=== PATIENT | female | born 1930 | race Caucasian/White ===

== ENCOUNTER 2019-11-09 08:51 | Emergency (ER) | payer MEDICARE, BC ==
[2019-11-09 08:55] VITALS: PULSE 81
[2019-11-09] MEDS ORDERED: Albuterol/Ipratropium 3.0-0.5 MG/3 ML Neb Soln NEB ONE (09:07)
[2019-11-09 09:30] VITALS: BP 146/68
[2019-11-09 09:46] LABS: CHLORIDE,CL 96 mmol/L (98-107); SODIUM,NA 135 mmol/L (136-145)
[2019-11-09] MEDS ORDERED: methylPREDNISolone Sodium Succinate 125 MG/2 ML SDV IM ONE (10:08)
--- NOTE | 2019-11-09 10:13 | EDM.PDOC ---
ED HPI GENERAL MEDICAL PROBLEM - General Chief Complaint: Cardiovascular Problem Stated Complaint: cough Time Seen by Provider: 11/09/19 09:00 Source of Information: Reports: Patient, Family History Limitations: Reports: Other (Dementia) - History of Present Illness INITIAL COMMENTS - FREE TEXT/NARRATIVE: Pt with intermittent cough No fever No chest pain Cough is not productive No N/V/D Onset: Gradual Duration: Day(s): Location: Reports: Chest Worsens with: Reports: Breathing Associated Symptoms: Reports: Cough - Related Data Allergies Allergy/AdvReac Type Severity Reaction Status Date / Time doxycycline Allergy UNKNOWN Verified 11/09/19 08:53 Penicillins Allergy UNKNOWN Verified 11/09/19 08:53 Home Meds: Home Meds Acetaminophen 1 tab PO Q4HR PRN 11/09/19 [History] Beta-Carotene(A)-Vits C,E/Mins [Vision Vitamins] 1 tab PO DAILY 11/09/19 [ History] Calcium Carbonate/Vitamin D3 [Calcium 600-Vit D3 500 Softgel] 2 tab PO DAILY 11/28 [History] Clindamycin HCl 1 tab PO ASDIRECTED PRN 11/09/19 [History] Diltiazem [Cardizem CD] 120 mg PO DAILY 11/09/19 [History] Docusate Sodium [Colace] 100 mg PO BEDTIME 11/09/19 [History] Donepezil HCl 10 mg PO DAILY 11/09/19 [History] Fluticasone Propionate [Flonase] 1 - 2 inh NASBOTH BID PRN 11/09/19 [History] Nadolol [Naldol] 40 mg PO DAILY 11/09/19 [History] Potassium Chloride 10 meq PO DAILY 11/09/19 [History] atorvaSTATin [Lipitor] 10 mg PO BEDTIME 11/09/19 [History] hydroCHLOROthiazide [Hydrochlorothiazide] 25 mg PO DAILY 11/09/19 [History] Past Medical History HEENT History: Reports: Allergic Rhinitis, Impaired Vision, Sinusitis Cardiovascular History: Reports: Arrhythmia, Heart Murmur, High Cholesterol, Hypertension Gastrointestinal History: Reports: Diverticulosis, Hiatal Hernia Musculoskeletal History: Reports: Osteoarthritis, Other (See Below) Other Musculoskeletal History: Polyarthralgia d/t degenerative disc disease Neurological History: Reports: Other (See Below) Other Neuro History: Dementia Hematologic History: Reports: Anemia - Past Surgical History GI Surgical History: Reports: Other (See Below) Other GI Surgeries/Procedures: anal fissure repair Musculoskeletal Surgical History: Reports: Knee Replacement, Other (See Below) Other Musculoskeletal Surgeries/Procedures:: Left TKA with post of cellulitis. Right TKA. Bilateral carpal tunnel surgery Social & Family History - Tobacco Use Smoking Status *Q: Never Smoker - Caffeine Use Caffeine Use: Reports: Coffee ED ROS GENERAL - Review of Systems Review Of Systems: See Below Constitutional: Reports: No Symptoms HEENT: Reports: No Symptoms Respiratory: Reports: Wheezing, Cough Cardiovascular: Reports: No Symptoms GI/Abdominal: Reports: No Symptoms ED EXAM, GENERAL - Physical Exam Exam: See Below Exam Limited By: No Limitations General Appearance: No Apparent Distress Nose: Normal Inspection Throat/Mouth: Normal Oropharynx Neck: Supple Respiratory/Chest: Wheezing Cardiovascular: Regular Rate, Rhythm GI/Abdominal: Non-Tender Course - Vital Signs Last Recorded V/S: Last Vital Signs Temp 36.9 C 11/09/19 08:54 Pulse 81 11/09/19 09:15 Resp 21 H 11/09/19 08:54 BP 146/68 H 11/09/19 09:15 Pulse Ox 93 L 11/09/19 09:15 - Orders/Labs/Meds Orders: Active Orders 24 hr Category Date Time Status RT Aerosol Therapy [RC] ASDIRECTED Care 11/09/19 09:08 Active Chest 2V [CR] Stat Exams 11/09/19 09:08 Taken methylPREDNISolone Sod Succ [Solu-MEDROL] Med 11/09/19 10:08 Once 125 mg IM ONETIME ONE Labs: Laboratory Tests 11/09/19 11/09/19 Range/Units 09:15 09:15 WBC 5.9 (4.0-10.2) K/uL RBC 4.61 (3.77-5.09) M/uL Hgb 14.3 (11.7-15.5) g/dL Hct 41.0 (34.0-46.0) % MCV 88.9 (84.0-98.0) fL MCH 31.0 (28.2-33.3) pg MCHC 34.9 (31.7-36.0) g/dL RDW 13.5 (11.2-14.1) % Plt Count 116 L (150-350) K/uL Neut % (Auto) 65.5 (45.0-80.0) % Lymph % (Auto) 16.8 (10.0-50.0) % Harper % (Auto) 13.7 (2.0-14.0) % Eos % (Auto) 3.7 (0.0-5.0) % Baso % (Auto) 0.3 (0.0-2.0) % Neut # (Auto) 3.86 (1.40-7.00) K/uL Lymph # (Auto) 0.99 (0.50-3.50) K/uL Harper # (Auto) 0.81 (0.00-1.00) K/uL Eos # (Auto) 0.22 (0.00-0.50) K/uL Baso # (Auto) 0.02 (0.00-0.20) K/uL Sodium 135 L (136-145) mmol/L Potassium 3.4 L (3.5-5.1) mmol/L Chloride 96 L (98-107) mmol/L Carbon Dioxide 31.8 (21.0-32.0) mmol/L BUN 13 (7-18) mg/dL Creatinine 0.66 (0.51-1.17) mg/dL Est Cr Clr Drug Dosing TNP Estimated GFR (MDRD) > 60 mL/min Glucose 102 (74-106) mg/dL Calcium 9.0 (8.5-10.1) mg/dL Meds: Medications Discontinued Medications Generic Name Dose Route Start Last Admin Trade Name Freq PRN Reason Stop Dose Admin Albuterol/Ipratropium 3 ml 11/09/19 09:07 11/09/19 09:10 Duoneb 3.0-0.5 Mg/3 Ml NEB 11/09/19 09:08 3 ml ONETIME ONE Administration - Re-Assessments/Exams Free Text/Narrative Re-Assessment/Exam: 11/09/19 10:11 Pt given HHN with resolution of wheezing Pt also given Solu-medrol 125 mg IM in ER Departure - Departure Time of Disposition: 10:30 Disposition: Home, Self-Care 01 Clinical Impression: URI (upper respiratory infection) Qualifiers: URI type: unspecified URI Qualified Code(s): J06.9 - Acute upper respiratory infection, unspecified Instructions: Shortness of Breath, Adult, [id number], Cough, Adult, Easy-to- Read Referrals: Meredith Porter [employer] [Primary Care Provider] - Additional Instructions: Follow up in clinic Sepsis Event Note - Evaluation Sepsis Screening Result: No Definite Risk - Focused Exam Vital Signs: Vital Signs Temp Pulse Resp BP Pulse Ox 11/09/19 09:15 81 146/68 H 93 L 11/09/19 09:05 81 148/75 H 93 L 11/09/19 08:54 36.9 C 81 21 H 181/78 H 93 L Date Exam was Performed: 11/09/19 Time Exam was Performed: 10:09 - My Orders Last 24 Hours: My Active Orders 11/09/19 09:08 RT Aerosol Therapy [RC] ASDIRECTED Chest 2V [CR] Stat 11/09/19 10:08 methylPREDNISolone Sod Succ [Solu-MEDROL] 125 mg IM ONETIME ONE - Assessment/Plan Last 24 Hours: My Active Orders 11/09/19 09:08 RT Aerosol Therapy [RC] ASDIRECTED Chest 2V [CR] Stat 11/09/19 10:08 methylPREDNISolone Sod Succ [Solu-MEDROL] 125 mg IM ONETIME ONE
== END 2019-11-09 10:36 | disposition home or self-care (01) ==
LOC: LL.ED 08:51
DX: J06.9 Acute upper respiratory infection, unspecified (principal); E78.00 Pure hypercholesterolemia, unspecified; I10 Essential (primary) hypertension; F03.90 Unspecified dementia, unspecified severity, without behavioral disturbance, psychotic disturbance, mood disturbance, and anxiety; Z79.899 Other long term (current) drug therapy; Z88.0 Allergy status to penicillin; Z88.1 Allergy status to other antibiotic agents
CPT/HCPCS: 36415; 71046; 80048; 85025; 94640; 99284-25; J2930; J7620-GY

== ENCOUNTER 2020-02-19 08:13 | Emergency (ER) | payer MEDICARE, BC ==
[2020-02-19 08:32] VITALS: BP 179/99; PULSE 60
--- NOTE | 2020-02-19 08:47 | EDM.PDOC ---
ED HPI GENERAL MEDICAL PROBLEM - General Chief Complaint: Laceration Stated Complaint: fall, lac to back of head Time Seen by Provider: 02/19/20 08:36 Source of Information: Reports: Patient, Intermediate Records - History of Present Illness INITIAL COMMENTS - FREE TEXT/NARRATIVE: Pt fell and hit back of head while sitting in chair No LOC Has laceration to back of head Onset: Today, Sudden Location: Reports: Head - Related Data Allergies Allergy/AdvReac Type Severity Reaction Status Date / Time doxycycline Allergy UNKNOWN Verified 02/19/20 08:32 Penicillins Allergy UNKNOWN Verified 02/19/20 08:32 Home Meds: Home Meds Acetaminophen 1 tab PO Q4HR PRN 11/09/19 [History] Beta-Carotene(A)-Vits C,E/Mins [Vision Vitamins] 1 tab PO DAILY 11/09/19 [ History] Calcium Carbonate/Vitamin D3 [Calcium 600-Vit D3 500 Softgel] 2 tab PO DAILY 11/28 [History] Clindamycin HCl 1 tab PO ASDIRECTED PRN 11/09/19 [History] Diltiazem [Cardizem CD] 120 mg PO DAILY 11/09/19 [History] Docusate Sodium [Colace] 100 mg PO BEDTIME 11/09/19 [History] Donepezil HCl 10 mg PO DAILY 11/09/19 [History] Fluticasone Propionate [Flonase] 1 - 2 inh NASBOTH BID PRN 11/09/19 [History] Potassium Chloride 10 meq PO DAILY 11/09/19 [History] atorvaSTATin [Lipitor] 10 mg PO BEDTIME 11/09/19 [History] hydroCHLOROthiazide [Hydrochlorothiazide] 25 mg PO DAILY 11/09/19 [History] nadoloL [Naldol] 40 mg PO DAILY 11/09/19 [History] Past Medical History HEENT History: Reports: Allergic Rhinitis, Impaired Vision, Sinusitis Cardiovascular History: Reports: Arrhythmia, Heart Murmur, High Cholesterol, Hypertension Gastrointestinal History: Reports: Diverticulosis, Hiatal Hernia Musculoskeletal History: Reports: Osteoarthritis, Other (See Below) Other Musculoskeletal History: Polyarthralgia d/t degenerative disc disease Neurological History: Reports: Other (See Below) Other Neuro History: Dementia Hematologic History: Reports: Anemia - Past Surgical History GI Surgical History: Reports: Other (See Below) Other GI Surgeries/Procedures: anal fissure repair Musculoskeletal Surgical History: Reports: Knee Replacement, Other (See Below) Other Musculoskeletal Surgeries/Procedures:: Left TKA with post of cellulitis. Right TKA. Bilateral carpal tunnel surgery Social & Family History - Caffeine Use Caffeine Use: Reports: Coffee ED ROS GENERAL - Review of Systems Review Of Systems: See Below Skin: Reports: Wound (Laceration to back of head) ED EXAM, SKIN/RASH Exam: See Below General Appearance: No Apparent Distress Head: Other (6 cm laceration to back of head No active bleeding) Neck: Non-Tender Neurological: Alert, No Motor/Sensory Deficits ED SKIN PROCEDURES - Laceration/Wound Repair Posterior Head Appearance: Linear Skin Prep: Saline Closed with: [place] Lac/Wound length In cm: 6 # of Sutures: 5 Tetanus Status Addressed: Yes Course - Vital Signs Last Recorded V/S: Last Vital Signs Temp 96.7 F L 02/19/20 08:17 Pulse 60 02/19/20 08:17 Resp 18 02/19/20 08:17 BP 179/99 H 02/19/20 08:17 Pulse Ox 99 02/19/20 08:17 Departure - Departure Time of Disposition: 09:00 Disposition: Home, Self-Care 01 Clinical Impression: Scalp laceration Qualifiers: Encounter type: initial encounter Qualified Code(s): S01.01XA - Laceration without foreign body of scalp, initial encounter - Discharge Information *PRESCRIPTION DRUG MONITORING PROGRAM REVIEWED*: Not Applicable *COPY OF PRESCRIPTION DRUG MONITORING REPORT IN PATIENT KELLY: Not Applicable Instructions: Laceration Care, Adult Additional Instructions: Keep wound clean [place] out in 10-14 days Sepsis Event Note - Evaluation Sepsis Screening Result: No Definite Risk - Focused Exam Vital Signs: Vital Signs Temp Pulse Resp BP Pulse Ox 02/19/20 08:17 96.7 F L 60 18 179/99 H 99 Date Exam was Performed: 02/19/20 Time Exam was Performed: 08:42
== END 2020-02-19 09:18 | disposition home or self-care (01) ==
LOC: LL.ED 08:13
DX: S01.01XA Laceration without foreign body of scalp, initial encounter (principal); I10 Essential (primary) hypertension; E78.00 Pure hypercholesterolemia, unspecified; M19.90 Unspecified osteoarthritis, unspecified site; Z88.0 Allergy status to penicillin; Z88.1 Allergy status to other antibiotic agents; Z79.899 Other long term (current) drug therapy; W07.XXXA Fall from chair, initial encounter
CPT/HCPCS: 12002; 99283